=== PATIENT | male | born 1995 | race African-American/Black ===

== ENCOUNTER 2018-09-13 16:56 | Emergency (ER) | payer OTHER ==
[2018-09-13 17:12] VITALS: RESP 18
[2018-09-13] MEDS ORDERED: ACETAMINOPHEN TAB 500 MG TAB PO STA (18:04)
[2018-09-13] MEDS ORDERED: SODIUM CHLORIDE 0.9% 1,000 ML IV STA (18:04)
[2018-09-13] MEDS ORDERED: IBUPROFEN 600 MG TAB PO STA (18:04)
--- NOTE | 2018-09-13 18:07 | ED ---
General Adult HPI - General Chief complaint: Fever Stated complaint: FEVER, FATIQUE Time Seen by Provider: 09/13/18 17:45 Source: patient, RN notes reviewed Mode of arrival: ambulatory Limitations: no limitations - History of Present Illness Initial comments: Patient is a pleasant 23-year-old male presenting to the emergency Department with complaints of fever and sore throat. Patient has had symptoms for the past week however significant worse today. Patient has fever and sweats. Patient last took Motrin, 600 mg at 6:30 AM. Patient does have a headache however states this is similar to previous migraines. Patient feels slightly fatigued today. - Related Data Allergies Allergy/AdvReac Type Severity Reaction Status Date / Time No Known Allergies Allergy Verified 09/13/18 17:11 Review of Systems ROS Statement: Those systems with pertinent positive or pertinent negative responses have been documented in the HPI. ROS Other: All systems not noted in ROS Statement are negative. 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, heart murmer History of Any Multi-Drug Resistant Organisms: None Reported Additional Past Surgical History / Comment(s): past trach and feelding tube, biopsy to tounge Past Psychological History: No Psychological Hx Reported Smoking Status: Never smoker Past Alcohol Use History: None Reported Past Drug Use History: None Reported General Exam Limitations: no limitations General appearance: alert, in no apparent distress Head exam: Present: atraumatic Eye exam: Present: normal appearance, PERRL ENT exam: Present: TM's normal bilaterally, other (Mild pharyngeal erythema) Expanded Mouth exam: Present: tongue normal. Absent: drooling, trismus Neck exam: Present: normal inspection, full ROM, lymphadenopathy (With tenderness). Absent: meningismus Respiratory exam: Present: normal lung sounds bilaterally Cardiovascular Exam: Present: regular rate, normal rhythm GI/Abdominal exam: Present: soft. Absent: tenderness, organomegaly Extremities exam: Present: normal inspection. Absent: pedal edema, calf tenderness Neurological exam: Present: alert Psychiatric exam: Present: normal affect, normal mood Skin exam: Present: normal color Course Vital Signs 09/13/18 09/13/18 09/13/18 17:07 19:39 20:43 Temperature 102.6 F H 99.6 F Pulse Rate 95 84 Respiratory 18 18 Rate Blood Pressure 128/78 114/57 115/62 O2 Sat by Pulse 100 99 Oximetry - Reevaluation(s) Reevaluation #1: 09/13/18 19:54 Patient reevaluated and resting comfortably in bed. Patient is eating Doritos. Patient states symptoms have improved. Patient still complains of headache. Patient states his throat still feels somewhat abnormal. Patient is offered computed tomography scan to evaluate the area of the base of his tongue where he previously had problem and is receptive to this. Medical Decision Making - Medical Decision Making Patient reevaluated and resting comfortably in bed. Patient has no respiratory distress. Patient and family are updated on results and plan. Case was discussed earlier with Dr. Reeves from ENT who does recommend patient be transferred to [facility] or his specialist this and they have his records. Case was discussed with physician at [facility], Dr. Anderson, who will accept transfer. - Lab Data Result diagrams: 09/13/18 18:15 09/13/18 18:15 Lab Results 09/13/18 09/13/18 09/13/18 Range/Units 18:04 18:15 18:15 WBC 10.1 (3.8-10.6) k/uL RBC 4.34 (4.30-5.90) m/uL Hgb 12.4 L (13.0-17.5) gm/dL Hct 36.9 L (39.0-53.0) % MCV 85.1 (80.0-100.0) fL MCH 28.6 (25.0-35.0) pg MCHC 33.6 (31.0-37.0) g/dL RDW 13.0 (11.5-15.5) % Plt Count 224 (150-450) k/uL Neutrophils % 78 % Lymphocytes % 11 % Monocytes % 5 % Eosinophils % 3 % Basophils % 0 % Neutrophils # 7.9 H (1.3-7.7) k/uL Lymphocytes # 1.1 (1.0-4.8) k/uL Monocytes # 0.5 (0-1.0) k/uL Eosinophils # 0.3 (0-0.7) k/uL Basophils # 0.0 (0-0.2) k/uL Sodium 139 (137-145) mmol/L Potassium 4.7 (3.5-5.1) mmol/L Chloride 103 (98-107) mmol/L Carbon Dioxide 26 (22-30) mmol/L Anion Gap 10 mmol/L BUN 4 L (9-20) mg/dL Creatinine 0.87 (0.66-1.25) mg/dL Est GFR (CKD-EPI)AfAm >90 (>60 ml/min/1.73 sqM) Est GFR (CKD-EPI)NonAf >90 (>60 ml/min/1.73 sqM) Glucose 92 (74-99) mg/dL Calcium 9.4 (8.4-10.2) mg/dL Total Bilirubin 0.6 (0.2-1.3) mg/dL AST 26 (17-59) U/L ALT 18 L (21-72) U/L Alkaline Phosphatase 77 (38-126) U/L Total Protein 6.9 (6.3-8.2) g/dL Albumin 4.3 (3.5-5.0) g/dL Heterophile Antibody (Negative) Group A Strep Rapid Negative (Negative) 09/13/18 Range/Units 18:15 WBC (3.8-10.6) k/uL RBC (4.30-5.90) m/uL Hgb (13.0-17.5) gm/dL Hct (39.0-53.0) % MCV (80.0-100.0) fL MCH (25.0-35.0) pg MCHC (31.0-37.0) g/dL RDW (11.5-15.5) % Plt Count (150-450) k/uL Neutrophils % % Lymphocytes % % Monocytes % % Eosinophils % % Basophils % % Neutrophils # (1.3-7.7) k/uL Lymphocytes # (1.0-4.8) k/uL Monocytes # (0-1.0) k/uL Eosinophils # (0-0.7) k/uL Basophils # (0-0.2) k/uL Sodium (137-145) mmol/L Potassium (3.5-5.1) mmol/L Chloride (98-107) mmol/L Carbon Dioxide (22-30) mmol/L Anion Gap mmol/L BUN (9-20) mg/dL Creatinine (0.66-1.25) mg/dL Est GFR (CKD-EPI)AfAm (>60 ml/min/1.73 sqM) Est GFR (CKD-EPI)NonAf (>60 ml/min/1.73 sqM) Glucose (74-99) mg/dL Calcium (8.4-10.2) mg/dL Total Bilirubin (0.2-1.3) mg/dL AST (17-59) U/L ALT (21-72) U/L Alkaline Phosphatase (38-126) U/L Total Protein (6.3-8.2) g/dL Albumin (3.5-5.0) g/dL Heterophile Antibody Negative (Negative) Group A Strep Rapid (Negative) - Radiology Data Radiology results: report reviewed (Computed tomography scan of the soft tissue of the neck shows mild thickening base of the tongue adjacent to the epiglottis that should be correlated on physical exam. 2 cm tongue mass as possible.) Disposition Clinical Impression: Tongue mass, Pharyngitis Disposition: OTHER INSTITUTION NOT DEFINED Is patient prescribed a controlled substance at d/c from ED?: No Referrals: Samuel Barakat MD [Primary Care Provider] - 1-2 days - Out of Hospital Transfer - Req. Specs Out of Hospital Transfer - Requested Specifics: Other Emergency Center
[2018-09-13 18:28] LABS: Basophils % (A) 0 %; Eosinophils # (A) 0.3 k/uL (0-0.7); Eosinophils % (A) 3 %; HCT 36.9 % (39.0-53.0); HGB 12.4 gm/dL (13.0-17.5); Lymphocytes # (A) 1.1 k/uL (1.0-4.8); Lymphocytes % (A) 11 %; MCH 28.6 pg (25.0-35.0); MCHC 33.6 g/dL (31.0-37.0); MCV 85.1 fL (80.0-100.0); Mean Platelet Volume 7.9; Monocytes # (A) 0.5 k/uL (0-1.0); Monocytes % (A) 5 %; Neutrophils # (A) 7.9 k/uL (1.3-7.7); Neutrophils % (A) 78 %; Platelet Count 224 k/uL (150-450); RBC 4.34 m/uL (4.30-5.90); WBC 10.1 k/uL (3.8-10.6)
[2018-09-13 18:39] LABS: ALT 18 U/L (21-72); AST 26 U/L (17-59); African American GFR (CKD) >90 (>60 ml/min/1.73 sqM); Albumin 4.3 g/dL (3.5-5.0); Alkaline Phosphatase 77 U/L (38-126); Anion Gap 10 mmol/L; Blood Urea Nitrogen 4 mg/dL (9-20); Calcium 9.4 mg/dL (8.4-10.2); Carbon Dioxide 26 mmol/L (22-30); Chloride 103 mmol/L (98-107); Glucose 92 mg/dL (74-99); Potassium 4.7 mmol/L (3.5-5.1); Sodium 139 mmol/L (137-145); Total Bilirubin 0.6 mg/dL (0.2-1.3); Total Protein 6.9 g/dL (6.3-8.2)
[2018-09-13] MEDS ORDERED: SODIUM CHLORIDE 0.9% 500 ML 500 ML IV STA (18:46)
[2018-09-13] MEDS ORDERED: MORPHINE SULFATE 4 MG/ML SYRINGE IV STA (19:54)
--- NOTE | 2018-09-13 20:27 | CT ---
EXAMINATION TYPE: CT soft tissue neck w con DATE OF EXAM: 09/13/2018 8:08 PM COMPARISON: 04/27/2015 HISTORY: Sore throat CT DLP: 244 mGycm Automated exposure control for dose reduction was used. CONTRAST: CT scan of the neck is performed following with IV Contrast, patient injected with 100 mL of Isovue 3 00. Axial images are obtained, coronal and sagittal reformatted images are reviewed. FINDINGS: Superior mediastinum appears normal. There is normal branching pattern of the great vessels on the ao rtic arch. Thyroid gland is symmetric. There is normal contrast opacification of carotid arteries and jugular veins. There is normal opacification of the vertebral arteries. The epiglottis appears adrienne l. The tonsils and adenoids are within normal limits. The submandibular salivary glands are symmetric . Parotid glands are symmetric. There is some thickening of the base of the tongue adjacent to the ep iglottis. There is normal aeration of the paranasal sinuses. There is no evidence of orbital mass. I see no pat hologic enhancement. Sella turcica appears normal. Cervical spine is intact. The subglottic trachea a ppears normal. IMPRESSION: There is mild thickening of the base of the tongue adjacent to the epiglottis that shoul d be correlated with the physical exam. 2 cm tongue mass is possible.
[2018-09-13] MEDS ORDERED: DEXAMETHASONE SOD PHOSPHATE 10 MG/ML 1 ML VIAL IV STA (20:55)
[2018-09-13] MEDS ORDERED: CLINDAMYCIN 900 MG in DEXTROSE 5% IN WATER 50 ML IVPB STA ×2 (20:56)
[2018-09-13 21:42] VITALS: BP 116/72; PULSE 79; TEMP 98
== END 2018-09-13 22:16 | disposition other institution (70) ==
LOC: EC 16:56
DX: J02.9 Acute pharyngitis, unspecified (principal); K14.8 Other diseases of tongue; Z86.69 Personal history of other diseases of the nervous system and sense organs
CPT/HCPCS: 36415; 80053; 85025; 86308; 87081; 87430; 70491; 99284; 96365; 96375 ×2; 96361; J2270; J1100; Q9967

== ENCOUNTER 2019-08-31 14:00 | Emergency (ER) | payer OTHER ==
[2019-08-31 14:27] VITALS: BP 149/69; PULSE 80; RESP 16; TEMP 98.5
[2019-08-31] MEDS ORDERED: CIPROFLOXACIN HCL 500 MG TAB PO STA ×2 (14:32→14:46)
[2019-08-31] MEDS ORDERED: DIPH,PERTUS(ACELL)TETVAC-LF 0.5 ML VIAL IM ONE (14:32)
--- NOTE | 2019-08-31 14:54 | ED ---
General Adult HPI - General Chief complaint: Extremity Injury, Lower Stated complaint: Stepped on nail Time Seen by Provider: 08/31/19 14:20 Source: patient, RN notes reviewed, old records reviewed Mode of arrival: ambulatory Limitations: no limitations - History of Present Illness Initial comments: 24-year-old male patient is evaluation of left heel. Patient reports that he was working when he stepped on a nail which penetrated through the sole of his shoe. Patient reports that he has a small amount of bruising around the area is ambulatory without difficulty denie any pain. Denies any other complaints. - Related Data Previous Rx's Medication Instructions Recorded Ciprofloxacin HCl 500 mg PO Q8HR 7 Days #21 tab 08/31/19 Allergies Allergy/AdvReac Type Severity Reaction Status Date / Time No Known Allergies Allergy Verified 08/31/19 14:17 Review of Systems ROS Statement: Those systems with pertinent positive or pertinent negative responses have been documented in the HPI. ROS Other: All systems not noted in ROS Statement are negative. 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 HEENT: NC/AT, trachea midline. External ears appear normal, without discharge. Mucous membranes moist. EOM intact. There is no scleral icterus. No pallor noted. Cardiopulmonary: RRR, no murmurs, rubs or gallops, no JVD noted. Lungs CTAB in anterior and posterior montano. No peripheral edema. MSK: Small puncture wound noted to the heel of left foot. Very mild amount of localized bruising. No erythema or other skin changes. Nontender to palpation. Distal pulses are intact and equal. Limitations: no limitations Course Vital Signs 08/31/19 08/31/19 14:17 14:25 Temperature 98.1 F 98.5 F Pulse Rate 70 80 Respiratory 18 16 Rate Blood Pressure 113/70 149/69 O2 Sat by Pulse 100 98 Oximetry Medical Decision Making - Medical Decision Making 24-year-old male patient is evaluation of left heel. Patient reports that he was working when he stepped on a nail which penetrated through the sole of his shoe. Patient reports that he has a small amount of bruising around the area is ambulatory without difficulty denie any pain. Denies any other complaints. Pt VSS, afebrile. Physical exam displayed: Small puncture wound noted to the heel of left foot. Very mild amount of localized bruising. No erythema or other skin changes. Nontender to palpation. Distal pulses are intact and equal. Patient tetanus updated. Patient will be prescribed ciprofloxacin for one week for follow-up with primary care provider Carlito for signs of infection. Case discussed with Dr. Dior. Disposition Clinical Impression: Puncture wound of skin from metal nail Disposition: HOME SELF-CARE Condition: Stable Instructions (If sedation given, give patient instructions): Puncture Wound (ED) Additional Instructions: Take antibiotics as directed. Follow up with primary care provider tomorrow. Monitor closely for signs of infection. These included redness drainage and pain. Avoid strenuous activity. Prescriptions: Ciprofloxacin HCl 500 mg PO Q8HR 7 Days #21 tab Is patient prescribed a controlled substance at d/c from ED?: No Referrals: Samuel Barakat MD [Primary Care Provider] - 1-2 days
== END 2019-08-31 15:16 | disposition home or self-care (01) ==
LOC: EC 14:00
DX: S91.332A Puncture wound without foreign body, left foot, initial encounter (principal); Z23 Encounter for immunization; W45.0XXA Nail entering through skin, initial encounter
CPT/HCPCS: 90471; 90715; 99283

== ENCOUNTER 2020-05-04 21:22 | Emergency (ER) | payer OTHER ==
[2020-05-04 21:41] VITALS: BP 143/90; PULSE 92; TEMP 98.3
--- NOTE | 2020-05-04 23:06 | ED ---
Anxiety HPI - General Chief Complaint: Anxiety Stated Complaint: SOB,Chest Pain Time Seen by Provider: 05/04/20 21:43 Source: patient, RN notes reviewed Mode of arrival: ambulatory Limitations: no limitations - History of Present Illness Initial Comments: 24-year-old male presents emergency Department chief complaint of severe anxiety, depression, suicidal ideation. Patient states that this is been getting worse recently he states it's combination of stress from work home life relationships. Patient states he took all day just to get to the hospital because he felt that he is not man enough to be acting like this. 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 Patient had a trach in the past multiple surgeries. Patient does admit to marijuana use. Patient states he did drink earlier today. - Related Data Home Medications: Home Medications Medication Instructions Recorded Confirmed Albuterol Inhaler [Ventolin Hfa 2 puff INHALATION RT-QID PRN 05/04/20 05/04/20 Inhaler] Diclofenac Sodium [Voltaren] 75 mg PO BID 05/04/20 05/04/20 HYDROcodone/APAP 5-325MG [[place] 1 tab PO QID 05/04/20 05/04/20 5-325] Allergies/Adverse Reactions: Allergies Allergy/AdvReac Type Severity Reaction Status Date / Time No Known Allergies Allergy Verified 05/04/20 22:52 Review of Systems ROS Statement: Those systems with pertinent positive or pertinent negative responses have been documented in the HPI. ROS Other: All systems not noted in ROS Statement are negative. 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 Absent: scleral icterus, conjunctival injection, periorbital swelling ENT exam: Present: mucous membranes moist, TM's normal bilaterally. Absent: normal exam, normal oropharynx Neck exam: Present: full ROM. Absent: normal inspection (Old trach noted), tenderness, meningismus, lymphadenopathy Respiratory exam: Present: normal lung sounds bilaterally. Absent: respiratory distress, wheezes, rales, rhonchi, stridor Cardiovascular Exam: Present: regular rate, normal rhythm, normal heart sounds. Absent: systolic murmur, diastolic murmur, rubs, gallop, clicks Neurological exam: Present: alert, oriented X3 Psychiatric exam: Present: depressed (Patient is tearful) Skin exam: Present: warm, dry, intact, normal color. Absent: rash Course Vital Signs 05/04/20 05/04/20 21:36 23:00 Temperature 98.3 F Pulse Rate 92 Respiratory 20 17 Rate Blood Pressure 143/90 O2 Sat by Pulse 98 Oximetry Medical Decision Making - Medical Decision Making 24-year-old male presented for psychiatric evaluation patient has CT plan will follow-up outpatient for treatment this was recommended by EPS and psychiatrist. Disposition Clinical Impression: Acute anxiety, Depression Disposition: HOME SELF-CARE Condition: Stable Instructions (If sedation given, give patient instructions): Generalized Anxiety Disorder (ED) Additional Instructions: Please return to the Emergency Department if symptoms worsen or any other concerns. Is patient prescribed a controlled substance at d/c from ED?: No Referrals: Samuel Barakat MD [Primary Care Provider] - 1-2 days Time of Disposition: 01:54
[2020-05-04 23:17] VITALS: RESP 17
== END 2020-05-05 02:44 | disposition home or self-care (01) ==
LOC: EC 21:22
DX: F32.9 Major depressive disorder, single episode, unspecified (principal); F41.9 Anxiety disorder, unspecified; F17.200 Nicotine dependence, unspecified, uncomplicated
CPT/HCPCS: 93005; 99284

== ENCOUNTER 2020-07-16 23:06 | Emergency (ER) | payer OTHER ==
[2020-07-16 23:38] VITALS: RESP 14
--- NOTE | 2020-07-17 00:18 | ED ---
Chest Pain HPI - General Chief Complaint: Chest Pain Stated Complaint: chest pain Time Seen by Provider: 07/16/20 23:30 Source: patient Mode of arrival: ambulatory Limitations: no limitations - History of Present Illness Initial Comments: This patient is 24-year-old man who presents to be evaluated for left upper chest pain. Patient states it has been going on since about 10 AM. He noticed it when he was making breakfast. The patient describes as aching. No worsening or relieving factors. He has also been having intermittently over the course of the last month though it has not lasted this long with the previous episodes. MD Complaint: chest pain Onset/Timin -: hour(s) Onset: during rest Pain Location: left chest Pain Radiation: none Severity: moderate Quality: aching, sharp Consistency: constant Improves With: nothing Worsens With: nothing Treatments Prior to Arrival: none - Related Data Home Medications Medication Instructions Recorded Confirmed Albuterol Inhaler [Ventolin Hfa 2 puff INHALATION RT-QID PRN 05/04/20 05/04/20 Inhaler] Diclofenac Sodium [Voltaren] 75 mg PO BID 05/04/20 05/04/20 HYDROcodone/APAP 5-325MG [[place] 1 tab PO QID 05/04/20 05/04/20 5-325] Allergies Allergy/AdvReac Type Severity Reaction Status Date / Time No Known Allergies Allergy Verified 07/16/20 23:18 Review of Systems ROS Statement: Those systems with pertinent positive or pertinent negative responses have been documented in the HPI. ROS Other: All systems not noted in ROS Statement are negative. Constitutional: Denies: fever, chills Respiratory: Denies: cough, dyspnea Cardiovascular: Reports: as per HPI, chest pain. Denies: palpitations, orthopnea, edema, syncope Gastrointestinal: Denies: abdominal pain, nausea, vomiting, diarrhea Genitourinary: Denies: dysuria, hematuria Musculoskeletal: Denies: back pain Skin: Denies: rash Neurological: Denies: headache, weakness, numbness EKG Findings - EKG Comments: EKG Findings:: Probable early repolarization - EKG Results: EKG: interpreted by TREMAINE, sinus rhythm (With sinus arrhythmia. 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 Absent: scleral icterus, conjunctival injection ENT exam: Present: normal oropharynx Neck exam: Present: normal inspection, full ROM Respiratory exam: Present: normal lung sounds bilaterally, chest wall tenderness. Absent: respiratory distress, wheezes, rales, rhonchi, stridor, accessory muscle use Cardiovascular Exam: Present: regular rate, normal rhythm, normal heart sounds. Absent: systolic murmur, diastolic murmur, rubs, gallop GI/Abdominal exam: Present: soft. Absent: distended, tenderness, guarding, rebound, rigid, mass, pulsatile mass, hernia Extremities exam: Present: normal inspection, normal capillary refill. Absent: pedal edema, calf tenderness Back exam: Present: normal inspection. Absent: CVA tenderness (R), CVA tenderness (L) Neurological exam: Present: alert Skin exam: Present: warm, dry, intact, normal color. Absent: rash Course Vital Signs 07/16/20 07/16/20 07/17/20 23:16 23:37 02:21 Temperature 98.1 F 97.8 F Pulse Rate 80 68 67 Respiratory 18 14 14 Rate Blood Pressure 130/82 128/73 108/64 O2 Sat by Pulse 100 98 100 Oximetry Chest Pain [facility] Patient is 24-year-old man with chest pain. Given the duration of the symptoms, patient stable for discharge after one set of cardiac enzymes. Will have close follow-up. Discussed return parameters. Disposition Clinical Impression: Chest pain Disposition: HOME SELF-CARE Condition: Good Instructions (If sedation given, give patient instructions): Chest Pain (ED) Is patient prescribed a controlled substance at d/c from ED?: No Referrals: Samuel Barakat MD [Primary Care Provider] - 1-2 days
--- NOTE | 2020-07-17 00:26 | XR ---
EXAMINATION TYPE: XR chest 2V DATE OF EXAM: 07/17/2020 COMPARISON: 11/13/2005 HISTORY: Chest pain TECHNIQUE: FINDINGS: Heart and mediastinum are normal. Lungs are clear. Diaphragm is normal. Bony thorax appears normal. IMPRESSION: Normal chest.
[2020-07-17 00:43] LABS: Basophils % (A) 1 %; Eosinophils # (A) 0.3 k/uL (0-0.7); Eosinophils % (A) 5 %; HCT 38.6 % (39.0-53.0); HGB 13.2 gm/dL (13.0-17.5); Lymphocytes # (A) 2.3 k/uL (1.0-4.8); Lymphocytes % (A) 40 %; MCH 30.6 pg (25.0-35.0); MCHC 34.2 g/dL (31.0-37.0); MCV 89.4 fL (80.0-100.0); Mean Platelet Volume 7.7; Monocytes # (A) 0.2 k/uL (0-1.0); Monocytes % (A) 4 %; Neutrophils # (A) 2.8 k/uL (1.3-7.7); Neutrophils % (A) 49 %; Platelet Count 221 k/uL (150-450); RBC 4.32 m/uL (4.30-5.90); RDW 11.6 % (11.5-15.5); WBC 5.7 k/uL (3.8-10.6)
[2020-07-17 01:01] LABS: D-Dimer <0.17 mg/L FEU (<0.60); INR 1.1 (<1.2); Partial Thromboplastin Time 27.6 sec (22.0-30.0); Prothrombin Time 11.4 sec (9.0-12.0)
[2020-07-17 01:09] LABS: ALT 19 U/L (4-49); AST 31 U/L (17-59); African American GFR (CKD) >90 (>60 ml/min/1.73 sqM); Albumin 4.2 g/dL (3.5-5.0); Alkaline Phosphatase 66 U/L (38-126); Amylase 112 U/L (30-110); Anion Gap 6 mmol/L; Blood Urea Nitrogen 10 mg/dL (9-20); Calcium 9.6 mg/dL (8.4-10.2); Carbon Dioxide 29 mmol/L (22-30); Chloride 104 mmol/L (98-107); Glucose 96 mg/dL (74-99); Lipase 106 U/L (23-300); Magnesium 1.8 mg/dL (1.6-2.3); Non-African American GFR(CKD) >90 (>60 ml/min/1.73 sqM); Potassium 4.1 mmol/L (3.5-5.1); Sodium 139 mmol/L (137-145); Total Bilirubin 0.4 mg/dL (0.2-1.3); Total Protein 6.6 g/dL (6.3-8.2)
[2020-07-17 02:23] VITALS: BP 108/64; PULSE 67; TEMP 97.8
== END 2020-07-17 02:29 | disposition home or self-care (01) ==
LOC: EC 23:06
DX: R07.89 Other chest pain (principal); F17.200 Nicotine dependence, unspecified, uncomplicated; F12.90 Cannabis use, unspecified, uncomplicated; Z79.1 Long term (current) use of non-steroidal anti-inflammatories (NSAID)
CPT/HCPCS: 36415; 71046; 80053; 82150; 83690; 83735; 84484; 85025; 85379; 85610; 85730; 93005; 99285

== ENCOUNTER 2022-09-29 21:49 | Emergency (ER) | payer OTHER ==
[2022-09-29 21:55] VITALS: TEMP 99.3
[2022-09-29 22:36] LABS: Basophils % (A) 0 %; Eosinophils # (A) 0.1 k/uL (0-0.7); Eosinophils % (A) 3 %; HCT 36.8 % (39.0-53.0); HGB 12.4 gm/dL (13.0-17.5); Lymphocytes # (A) 0.5 k/uL (1.0-4.8); Lymphocytes % (A) 12 %; MCH 29.5 pg (25.0-35.0); MCHC 33.7 g/dL (31.0-37.0); MCV 87.4 fL (80.0-100.0); Mean Platelet Volume 8.1; Monocytes # (A) 0.2 k/uL (0-1.0); Monocytes % (A) 6 %; Neutrophils # (A) 3.1 k/uL (1.3-7.7); Neutrophils % (A) 78 %; Platelet Count 153 k/uL (150-450); RBC 4.21 m/uL (4.30-5.90); RDW 11.9 % (11.5-15.5)
[2022-09-29 22:39] LABS: African American GFR (CKD) >90 (>60 ml/min/1.73 sqM); Anion Gap 6 mmol/L; Blood Urea Nitrogen 6 mg/dL (9-20); Calcium 8.8 mg/dL (8.4-10.2); Carbon Dioxide 26 mmol/L (22-30); Chloride 103 mmol/L (98-107); Glucose 113 mg/dL (74-99); Non-African American GFR(CKD) >90 (>60 ml/min/1.73 sqM); Potassium 3.8 mmol/L (3.5-5.1); Sodium 135 mmol/L (137-145)
[2022-09-29] MEDS ORDERED: SODIUM CHLORIDE 0.9% 2,000 ML IV ONE (23:46)
[2022-09-29] MEDS ORDERED: diphenhydrAMINE 50 MG/ML 1 ML VIAL IVP STA (23:46)
[2022-09-29] MEDS ORDERED: METOCLOPRAMIDE 5 MG/ML 2 ML VIAL IVP STA (23:46)
[2022-09-29] MEDS ORDERED: KETOROLAC 15 MG/ML 1 ML VIAL IVP STA (23:46)
--- NOTE | 2022-09-30 01:47 | XR ---
EXAM: XR Chest, 2 Views CLINICAL HISTORY: : Cough/pain TECHNIQUE: Frontal and lateral views of the chest. COMPARISON: 07/17/2020 FINDINGS: Lungs: No consolidation. Hypoventilation with mild atelectasis. No CHF. Pleural space: No pleural effusion. No pneumothorax. Heart: No cardiomegaly. Mediastinum: Unremarkable. Bones/joints: Unremarkable. IMPRESSION: Hypoventilation with mild atelectasis. No definite focal infiltrate.
[2022-09-30 02:02] LABS: Appearance,Urine Clear (Clear); Color,Urine Yellow
[2022-09-30 02:03] LABS: Bilirubin,Urine Negative (Negative); Blood,Urine Small (Negative); Glucose,Urine (UA) Negative (Negative); Ketones,Urine Negative (Negative); Leukocyte Esterase,Urine Negative (Negative); Nitrite,Urine Negative (Negative); PH, Urine 6.5 (5.0-8.0); Protein,Urine 1+ (Negative); Specific Gravity,Urine 1.029 (1.001-1.035)
[2022-09-30] MEDS ORDERED: MORPHINE SULFATE 4 MG/ML SYRINGE IVP STA (02:08)
[2022-09-30 02:10] LABS: Calcium Oxalate Crystals,Urine Moderate /hpf; RBC,Urine 2 /hpf (0-5); WBC,Urine 0 /hpf (0-5)
--- NOTE | 2022-09-30 02:19 | ED ---
General Adult HPI - General Chief complaint: Fever Stated complaint: Body aches, headache Time Seen by Provider: 09/29/22 22:00 Source: patient Mode of arrival: ambulatory Limitations: no limitations - History of Present Illness Initial comments: 27-year-old male with past medical history of tongue AVM, status post trach and PEG who presents to the emergency room with body aches, headache and fever. States it's been going on since Thursday. He has been taking Motrin without any improvement in his symptoms. Denies any sick contacts. Last dose of Motrin was at 2 PM. No cold exposure. Does admit to a nonproductive cough. No abdominal pain. Has had some mild diarrhea. Admits global headache. No neck stiffness. No chest pain. Denies rashes. Denies ear pain or sore throat. No other alleviating, precipitating modifying factors - Related Data Home Medications Medication Instructions Recorded Confirmed Albuterol Inhaler [Ventolin Hfa 2 puff INHALATION RT-QID PRN 05/04/20 05/04/20 Inhaler] Diclofenac Sodium [Voltaren] 75 mg PO BID 05/04/20 05/04/20 HYDROcodone/APAP 5-325MG [[place] 1 tab PO QID 05/04/20 05/04/20 5-325] Previous Rx's Medication Instructions Recorded Acetaminophen-Codeine 300-30mg 1 tab PO Q6H PRN 3 Days #12 tablet 09/30/22 [Tylenol w/codeine #3] Ondansetron Odt [Zofran Odt] 4 mg PO Q8HR PRN #10 tab 09/30/22 Allergies Allergy/AdvReac Type Severity Reaction Status Date / Time No Known Allergies Allergy Verified 07/16/20 23:18 Review of Systems ROS Statement: Those systems with pertinent positive or pertinent negative responses have been documented in the HPI. ROS Other: All systems not noted in ROS Statement are negative. 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 Absent: scleral icterus, conjunctival injection, periorbital swelling ENT exam: Present: normal exam, mucous membranes moist Neck exam: Present: normal inspection. Absent: tenderness, meningismus, lympha denopathy Respiratory exam: Present: normal lung sounds bilaterally. Absent: respiratory distress, wheezes, rales, rhonchi, stridor Cardiovascular Exam: Present: regular rate, normal rhythm, normal heart sounds. Absent: systolic murmur, diastolic murmur, rubs, gallop, clicks GI/Abdominal exam: Present: soft, normal bowel sounds. Absent: distended, tenderness, guarding, rebound, rigid Extremities exam: Present: normal inspection, full ROM, normal capillary refill. Absent: tenderness, pedal edema, joint swelling, calf tenderness Back exam: Present: normal inspection Neurological exam: Present: alert, oriented X3, CN II-XII intact Psychiatric exam: Present: normal affect, normal mood Skin exam: Present: warm, dry, intact, normal color. Absent: rash Course Vital Signs 09/29/22 09/30/22 21:50 03:30 Temperature 99.3 F Pulse Rate 88 59 L Respiratory 18 16 Rate Blood Pressure 154/81 116/69 O2 Sat by Pulse 97 100 Oximetry Medical Decision Making - Medical Decision Making Was pt. sent in by a medical professional or institution (, PA, ASSISTANT CLINICAL NURSE MANAGER, urgent care, hospital, or shelter...) When possible be specific @ -No Did you speak to anyone other than the patient for history (EMS, parent, family, police, friend...)? What history was obtained from this source @ -No Did you review nursing and triage notes (agree or disagree)? Why? @ -I reviewed and agree with nursing and triage notes Were old charts reviewed (outside hosp., previous admission, EMS record, old EKG, old radiological studies, urgent care reports/EKG's, shelter records)? Report findings @ -No old charts were reviewed Differential Diagnosis (chest pain, altered mental status, abdominal pain women, abdominal pain men, vaginal bleeding, weakness, fever, dyspnea, syncope, headache, dizziness, GI bleed, back pain, seizure, CVA, palpatations, mental health, musculoskeletal)? @ -Differential Fever: Pneumonia, viral URI, endocarditis, myocarditis, pericarditis, otitis, sinusitis, peritonsillar Abscess, retropharyngeal Abscess, epiglottitis, peritonitis, appendicitis, Kanika cystitis, diverticulitis, hepatitis, colitis, UTI, PID, TOA, pyelonephritis, prostatitis, epididymitis, meningitis, enceph alitis, pulmonary embolism, CVA, thyroid storm, pancreatitis, adrenal crisis, cavernous sinus thrombosis, this is not meant to be an all-inclusive list. EKG interpreted by me (3pts min.). @ -Not done X-rays interpreted by me (1pt min.). @ -Yes and demonstrates no acute intrathoracic process CT interpreted by me (1pt min.). @ -None done U/S interpreted by me (1pt. min.). @ -None done What testing was considered but not performed or refused? (CT, X-rays, U/S, labs)? Why? @ -Lumbar puncture however patient has no meningeal signs. He has no elevated white count or fever What meds were considered but not given or refused? Why? @ -None Did you discuss the management of the patient with other professionals (professionals i.e. , PA, ASSISTANT CLINICAL NURSE MANAGER, lab, RT, psych nurse, rn social services, pump servicer, teacher, juvenile probation officer, spring encaser)? Give summary @ -No Was smoking cessation discussed for >3mins.? @ -No Was critical care preformed (if so, how long)? @ -No Were there social determinants of health that impacted care today? How? (Homelessness, low income, unemployed, alcoholism, drug addiction, transportation, low edu. Level, literacy, decrease access to med. care, long term, rehab)? @ -No Was there de-escalation of care discussed even if they declined (Discuss DNR or withdrawal of care, Hospice)? DNR status @ -No What co-morbidities impacted this encounter? (DM, HTN, Smoking, COPD, CAD, Cancer, CVA, ARF, Chemo, Hep., AIDS, mental health diagnosis, sleep apnea, morbid obesity)? @ -None Was patient admitted / discharged? Hospital course, mention meds given and route, prescriptions, significant lab abnormalities, going to OR and other pertinent info. @ -Upon arrival patient was placed into room 29. A thorough history and physical exam is performed. IV access was established. He was given Reglan and Benadryl for his headache. Laboratory studies were conducted. Patient is reevaluated multiple times. He does not have any improvement in his headache. He was given 1 dose of morphine and is essentially pain-free. Discuss results with the patient. Discussed the differential and treatment plan. Patient will be given a prescription for Tylenol 3. Needs to follow up with primary care doctor for further evaluation. Drink plenty of fluids and rest and return for any new or worsening symptoms. Patient was agreeable to plan and is discharged in stable condition Undiagnosed new problem with uncertain prognosis? @ -Yes Drug Therapy requiring intensive monitoring for toxicity (Heparin, Nitro, Insulin, Cardizem)? @ -No Were any procedures done? @ -No Diagnosis/symptom? @ -Acute pyrexia by history, acute nausea, acute diarrhea, acute myalgias Acute, or Chronic, or Acute on Chronic? @ -Acute Uncomplicated (without systemic symptoms) or Complicated (systemic symptoms)? @ -Complicated Side effects of treatment? @ -No Exacerbation, Progression, or Severe Exacerbation? @ -No Poses a threat to life or bodily function? How? (Chest pain, [place], SC, pneumonia, PE, COPD, DKA, ARF, appy, cholecystitis, CVA, Diverticulitis, Homicidal, Suicidal, threat to staff... and all critical care pts) @ -No - Lab Data Result diagrams: 09/29/22 22:00 09/29/22 22:00 Lab Results 09/29/22 09/29/22 09/29/22 Range/Units 21:56 22:00 22:00 WBC 4.0 (3.8-10.6) k/uL RBC 4.21 L (4.30-5.90) m/uL Hgb 12.4 L (13.0-17.5) gm/dL Hct 36.8 L (39.0-53.0) % MCV 87.4 (80.0-100.0) fL MCH 29.5 (25.0-35.0) pg MCHC 33.7 (31.0-37.0) g/dL RDW 11.9 (11.5-15.5) % Plt Count 153 (150-450) k/uL MPV 8.1 Neutrophils % 78 % Lymphocytes % 12 % Monocytes % 6 % Eosinophils % 3 % Basophils % 0 % Neutrophils # 3.1 (1.3-7.7) k/uL Lymphocytes # 0.5 L (1.0-4.8) k/uL Monocytes # 0.2 (0-1.0) k/uL Eosinophils # 0.1 (0-0.7) k/uL Basophils # 0.0 (0-0.2) k/uL Sodium 135 L (137-145) mmol/L Potassium 3.8 (3.5-5.1) mmol/L Chloride 103 (98-107) mmol/L Carbon Dioxide 26 (22-30) mmol/L Anion Gap 6 mmol/L BUN 6 L (9-20) mg/dL Creatinine 0.94 (0.66-1.25) mg/dL Est GFR (CKD-EPI)AfAm >90 (>60 ml/min/1.73 sqM) Est GFR (CKD-EPI)NonAf >90 (>60 ml/min/1.73 sqM) Glucose 113 H (74-99) mg/dL Calcium 8.8 (8.4-10.2) mg/dL Urine Color Urine Appearance (Clear) Urine pH (5.0-8.0) Ur Specific [place] (1.001-1.035) Urine Protein (Negative) Urine Glucose (UA) (Negative) Urine Ketones (Negative) Urine Blood (Negative) Urine Nitrite (Negative) Urine Bilirubin (Negative) Urine Urobilinogen (<2.0) mg/dL Ur Leukocyte Esterase (Negative) Urine RBC (0-5) /hpf Urine WBC (0-5) /hpf Calcium Oxalate Crystal (None) /hpf Urine Bacteria (None) /hpf Heterophile Antibody (Negative) Influenza Type A (PCR) Not Detected (Not Detectd) Influenza Type B (PCR) Not Detected (Not Detectd) RSV (PCR) Not Detected (Not Detectd) SARS-CoV-2 (PCR) Not Detected (Not Detectd) 09/30/22 09/30/22 Range/Units 00:05 00:35 WBC (3.8-10.6) k/uL RBC (4.30-5.90) m/uL Hgb (13.0-17.5) gm/dL Hct (39.0-53.0) % MCV (80.0-100.0) fL MCH (25.0-35.0) pg MCHC (31.0-37.0) g/dL RDW (11.5-15.5) % Plt Count (150-450) k/uL MPV Neutrophils % % Lymphocytes % % Monocytes % % Eosinophils % % Basophils % % Neutrophils # (1.3-7.7) k/uL Lymphocytes # (1.0-4.8) k/uL Monocytes # (0-1.0) k/uL Eosinophils # (0-0.7) k/uL Basophils # (0-0.2) k/uL Sodium (137-145) mmol/L Potassium (3.5-5.1) mmol/L Chloride (98-107) mmol/L Carbon Dioxide (22-30) mmol/L Anion Gap mmol/L BUN (9-20) mg/dL Creatinine (0.66-1.25) mg/dL Est GFR (CKD-EPI)AfAm (>60 ml/min/1.73 sqM) Est GFR (CKD-EPI)NonAf (>60 ml/min/1.73 sqM) Glucose (74-99) mg/dL Calcium (8.4-10.2) mg/dL Urine Color Yellow Urine Appearance Clear (Clear) Urine pH 6.5 (5.0-8.0) Ur Specific [place] 1.029 (1.001-1.035) Urine Protein 1+ (Negative) Urine Glucose (UA) Negative (Negative) Urine Ketones Negative (Negative) Urine Blood Small (Negative) Urine Nitrite Negative (Negative) Urine Bilirubin Negative (Negative) Urine Urobilinogen 3.0 (<2.0) mg/dL Ur Leukocyte Esterase Negative (Negative) Urine RBC 2 (0-5) /hpf Urine WBC 0 (0-5) /hpf Calcium Oxalate Crystal Moderate H (None) /hpf Urine Bacteria NONE (None) /hpf Heterophile Antibody Negative (Negative) Influenza Type A (PCR) (Not Detectd) Influenza Type B (PCR) (Not Detectd) RSV (PCR) (Not Detectd) SARS-CoV-2 (PCR) (Not Detectd) Disposition Clinical Impression: Pyrexia of unknown origin, Myalgia Disposition: HOME SELF-CARE Condition: Stable Instructions (If sedation given, give patient instructions): Fever in Adults (ED) Additional Instructions: Please alternate taking the Tylenol threes with Motrin every 4 hours. Take the nausea medications as needed. Follow up with your doctor and return for any new or worsening symptoms Prescriptions: Acetaminophen-Codeine 300-30mg [Tylenol w/codeine #3] 1 tab PO Q6H PRN 3 Days #12 tablet PRN Reason: Pain Ondansetron Odt [Zofran Odt] 4 mg PO Q8HR PRN #10 tab PRN Reason: Nausea Is patient prescribed a controlled substance at d/c from ED?: Yes When asked, does pt state using other controlled substances?: No If prescribed controlled substance>3 days was MAPS reviewed?: Prescribed <3 Days Referrals: Samuel Barakat MD [Primary Care Provider] - 1-2 days Time of Disposition: 03:11
[2022-09-30] MEDS ORDERED: ACET/COD 300 MG/30 MG STARTER PACK 6 TAB BTL PO STA (03:10)
[2022-09-30] MEDS ORDERED: ONDANSETRON 4 MG ODT STARTER PACK 2 TAB BTL PO STA (03:10)
[2022-09-30 03:32] VITALS: BP 116/69; PULSE 59; RESP 16
== END 2022-09-30 03:31 | disposition home or self-care (01) ==
LOC: EC 21:49
DX: R50.9 Fever, unspecified (principal); M79.10 Myalgia, unspecified site; F17.200 Nicotine dependence, unspecified, uncomplicated; F12.90 Cannabis use, unspecified, uncomplicated; Z20.822 Contact with and (suspected) exposure to COVID-19
CPT/HCPCS: 36415; 80048; 85025; 86308; 81001; 87636; 71046; 99284; 96374; 96375 ×3; 96361 ×3; J2270; J1200; J2765; J1885; S0119

== ENCOUNTER 2022-10-02 21:28 | Emergency (ER) | payer OTHER ==
[2022-10-02 21:34] VITALS: TEMP 99
[2022-10-02] MEDS ORDERED: SODIUM CHLORIDE 0.9% 500 ML 500 ML IV STA (21:44)
[2022-10-02 22:03] LABS: HCT 36.3 % (39.0-53.0); HGB 12.7 gm/dL (13.0-17.5); MCHC 34.9 g/dL (31.0-37.0); MCV 85.8 fL (80.0-100.0); Platelet Count 122 k/uL (150-450); RBC 4.24 m/uL (4.30-5.90); WBC 3.4 k/uL (3.8-10.6)
[2022-10-02] MEDS ORDERED: diphenhydrAMINE 50 MG/ML 1 ML VIAL IVP STA (22:09)
[2022-10-02] MEDS ORDERED: methocarbamoL 750 MG TAB PO ONE (22:15)
[2022-10-02 22:20] LABS: ALT 27 U/L (4-49); AST 35 U/L (17-59); African American GFR (CKD) >90 (>60 ml/min/1.73 sqM); Albumin 3.6 g/dL (3.5-5.0); Alkaline Phosphatase 74 U/L (38-126); Anion Gap 7 mmol/L; Blood Urea Nitrogen 7 mg/dL (9-20); C Reactive Protein 3.9 mg/dL (<1.0); Calcium 8.6 mg/dL (8.4-10.2); Carbon Dioxide 26 mmol/L (22-30); Chloride 103 mmol/L (98-107); Glucose 117 mg/dL (74-99); Non-African American GFR(CKD) >90 (>60 ml/min/1.73 sqM); Potassium 3.6 mmol/L (3.5-5.1); Sodium 136 mmol/L (137-145); Total Bilirubin 0.6 mg/dL (0.2-1.3); Total Protein 6.3 g/dL (6.3-8.2)
--- NOTE | 2022-10-02 22:45 | CT ---
EXAM: CT Head Without Intravenous Contrast CLINICAL HISTORY: ITS.REASON CT Reason: Headache TECHNIQUE: Axial computed tomography images of the head/brain without intravenous contrast. CTDI is 49.1 mGy and DLP is 1189.4 mGy-cm. This CT exam was performed using one or more of the following dose reduction techniques: automated exposure control, adjustment of the mA and/or kV according to patient size, and/or use of iterative reconstruction technique. COMPARISON: No relevant prior studies available. FINDINGS: Brain: Unremarkable. No hemorrhage. No significant white matter disease. No edema. Brown-white matter differentiation maintained. Ventricles: Unremarkable. No hydrocephalus. Bones/joints: Unremarkable. No acute fracture. Soft tissues: Unremarkable. Sinuses: Unremarkable as visualized. No acute sinusitis. Mastoid air cells: Unremarkable as visualized. No mastoid effusion. IMPRESSION: No acute intracranial process.
--- NOTE | 2022-10-02 22:49 | CT ---
EXAM: CT Abdomen and Pelvis With Intravenous Contrast CLINICAL HISTORY: ITS.REASON CT Reason: rlq pain TECHNIQUE: Axial computed tomography images of the abdomen and pelvis with intravenous contrast. CTDI is 14.5 mGy and DLP is 661.6 mGy-cm. This CT exam was performed using one or more of the following dose reduction techniques: automated exposure control, adjustment of the mA and/or kV according to patient size, and/or use of iterative reconstruction technique. COMPARISON: No relevant prior studies available. FINDINGS: There are trace pleural effusions at the lung bases. Liver is enlarged. Gallbladder is contracted. There is no biliary dilatation. Spleen, pancreas, adrenal glands, and kidneys are within normal limits. Aorta is normal in caliber. There is no adenopathy. There is mild pelvic ascites. There is no free air or abscess. Appendix is normal. There is no bowel obstruction or inflammation. There is urinary bladder wall thickening in the setting of incomplete distention. Prostate is unremarkable. Regional skeleton appears intact. There is trace anasarca. IMPRESSION: 1. Normal appendix. 2. Mild pelvic ascites, cause unclear. This could reflect hypervolemia or occult infectious/inflammatory process. 3. Trace pleural effusions. 4. Bladder wall thickening, likely due to incomplete distention. Correlate with urinalysis to exclude cystitis.
[2022-10-02 22:52] LABS: Band Neutrophils % 6 %; Lymphocytes # (M) 1.53 k/uL (1.0-4.8); Monocytes # (M) 0.34 k/uL (0-1.0); Neutrophils % (M) 36 %; Nucleated Red Blood Cells 0 /100 WBC (0-0); Total Cells Counted 100
[2022-10-02] MEDS ORDERED: DEXAMETHASONE SOD PHOSPHATE 10 MG/ML 1 ML VIAL IVP STA (23:39)
--- NOTE | 2022-10-02 23:40 | ED ---
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 He was seen in the emergency department on September 29 for a headache and body aches. States that he was having fevers at home. Evaluation was performed which demonstrated a suspected viral syndrome. Patient reports that since he has been home his headache has almost completely alleviated. He no longer has any fevers. He did develop some bilateral neck aching and therefore was concerned that he needed to come back to the hospital as he was told that neck stiffness was one of his symptoms to look out for. He also has developed a rash to his torso which is pruritic. He has not taken any medications at home for his symptoms. Denies pain with range of motion of his neck. Does have some tenderness to palpation of the paraspinal muscles. No visual changes. No speech difficulties. States that his symptoms overall have improved. He denies any more diarrhea. Has developed some right lower quadrant abdominal pain. No vomiting. No changes in his bladder habits. No other alleviating, precipitating or modifying factors - Related Data Home Medications Medication Instructions Recorded Confirmed Albuterol Inhaler [Ventolin Hfa 2 puff INHALATION RT-QID PRN 05/04/20 05/04/20 Inhaler] Diclofenac Sodium [Voltaren] 75 mg PO BID 05/04/20 05/04/20 HYDROcodone/APAP 5-325MG [[place] 1 tab PO QID 05/04/20 05/04/20 5-325] Previous Rx's Medication Instructions Recorded Acetaminophen-Codeine 300-30mg 1 tab PO Q6H PRN 3 Days #12 tablet 09/30/22 [Tylenol w/codeine #3] Ondansetron Odt [Zofran Odt] 4 mg PO Q8HR PRN #10 tab 09/30/22 Allergies Allergy/AdvReac Type Severity Reaction Status Date / Time No Known Allergies Allergy Verified 10/02/22 21:34 Review of Systems ROS Statement: Those systems with pertinent positive or pertinent negative responses have been documented in the HPI. ROS Other: All systems not noted in ROS Statement are negative. 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 Absent: scleral icterus, conjunctival injection, periorbital swelling ENT exam: Present: normal exam, mucous membranes moist Neck exam: Present: tenderness (To palpation of the paraspinal muscles. No midline tenderness. Negative Brudzinski's and negative Kernig's). Absent: meningismus, lymphadenopathy Respiratory exam: Present: normal lung sounds bilaterally. Absent: respiratory distress, wheezes, rales, rhonchi, stridor Cardiovascular Exam: Present: regular rate, normal rhythm, normal heart sounds. Absent: systolic murmur, diastolic murmur, rubs, gallop, clicks GI/Abdominal exam: Present: tenderness (Right lower quadrant), normal bowel sounds. Absent: distended, guarding, rebound, rigid Extremities exam: Present: normal inspection, full ROM, normal capillary refill. Absent: tenderness, pedal edema, joint swelling, calf tenderness Back exam: Present: normal inspection Neurological exam: Present: alert, oriented X3, CN II-XII intact Psychiatric exam: Present: normal affect, normal mood Skin exam: Present: warm, dry, intact, normal color, rash (Macular rash involving forearms, torso. No vesicles identified) Course Vital Signs 10/02/22 10/02/22 21:29 23:54 Temperature 99.0 F Pulse Rate 88 78 Respiratory 18 15 Rate Blood Pressure 148/84 132/84 O2 Sat by Pulse 97 100 Oximetry Medical Decision Making - Medical Decision Making Was pt. sent in by a medical professional or institution (, PA, WHEEL FILLER, urgent care, hospital, or alf...) When possible be specific @ -No Did you speak to anyone other than the patient for history (EMS, parent, family, police, friend...)? What history was obtained from this source @ -No Did you review nursing and triage notes (agree or disagree)? Why? @ -I reviewed and agree with nursing and triage notes Were old charts reviewed (outside hosp., previous admission, EMS record, old EKG, old radiological studies, urgent care reports/EKG's, alf records)? Report findings @ -I reviewed the patient's chart from the Differential Diagnosis (chest pain, altered mental status, abdominal pain women, abdominal pain men, vaginal bleeding, weakness, fever, dyspnea, syncope, headache, dizziness, GI bleed, back pain, seizure, CVA, palpatations, mental health, musculoskeletal)? @ -Differential Abdominal Pain Men: Appendicitis, cholecystitis, diverticulosis, ischemic bowel, pancreatitis, hepatitis, UTI, gastroenteritis, AAA, incarcerated hernia, bowel obstruction, constipation, inflammatory bowel, hepatitis, peptic ulcer disease, splenic infarction, perforated viscus, testicular torsion, this is not meant to be an all-inclusive list EKG interpreted by me (3pts min.). @ -Not completed X-rays interpreted by me (1pt min.). @ -None done CT interpreted by me (1pt min.). @ -CT of the brain demonstrates no acute intracranial process. CT abdomen and pelvis demonstrates trace fluid. Appendix is normal. Under distended bladder U/S interpreted by me (1pt. min.). @ -None done What testing was considered but not performed or refused? (CT, X-rays, U/S, labs)? Why? @ - lumbar puncture - patient has no fever, meningeal signs. His headache has gone away. His neck tenderness is paraspinal What meds were considered but not given or refused? Why? @ -None Did you discuss the management of the patient with other professionals (professionals i.e. , PA, WHEEL FILLER, lab, RT, psych nurse, social science professor, caterpillar tractor operator, teacher, court officer, porter sample case)? Give summary @ -No Was smoking cessation discussed for >3mins.? @ -No Was critical care preformed (if so, how long)? @ -No Were there social determinants of health that impacted care today? How? (Homelessness, low income, unemployed, alcoholism, drug addiction, transportation, low edu. Level, literacy, decrease access to med. care, retirement, rehab)? @ -No Was there de-escalation of care discussed even if they declined (Discuss DNR or withdrawal of care, Hospice)? DNR status @ -No What co-morbidities impacted this encounter? (DM, HTN, Smoking, COPD, CAD, Cancer, CVA, ARF, Chemo, Hep., AIDS, mental health diagnosis, sleep apnea, morbid obesity)? @ -None Was patient admitted / discharged? Hospital course, mention meds given and route, prescriptions, significant lab abnormalities, going to OR and other pertinent info. @ -Upon arrival patient is placed into room 4. A thorough history and physical exam was performed. Patient's headache has gone away. He is no longer having fevers. Overall states that his symptoms are improved however he began having some bilateral neck aching. He has no midline neck pain. Patient infiltrate without difficulty. Laboratory studies are conducted. He is sent for CT of his head and cervical spine. CT of his abdomen and pelvis is performed due to his right lower quadrant pain. Patient was given Benadryl and Robaxin. He is reevaluated and states that the itching is better however his neck tension still is present. I did discuss lumbar puncture however shared decision making between the patient and I occurs and the patient refuses the testing at this time. I do feel that the diagnosis of meningitis is low in the setting that the patient's symptoms are rapidly improving. Patient is requesting testing for yellow fever, dengue, West Nile however I do inform him that I am unable to obtain these laboratory studies in the emergency department and he will require follow-up with his primary care doctor for this kind of testing. Patient understood this. He is instructed to take Benadryl every 6 hours for his rash. He is given a dose of Decadron in the emergency department. He is to return for any new or worsening symptoms. Patient was agreeable to this plan and was discharged in stable condition Undiagnosed new problem with uncertain prognosis? @ -Yes Drug Therapy requiring intensive monitoring for toxicity (Heparin, Nitro, Insulin, Cardizem)? @ -No Were any procedures done? @ -No Diagnosis/symptom? @ -Acute neck pain, acute right lower quadrant abdominal pain, viral rash Acute, or Chronic, or Acute on Chronic? @ -Acute Uncomplicated (without systemic symptoms) or Complicated (systemic symptoms)? @ -Complicated Side effects of treatment? @ -No Exacerbation, Progression, or Severe Exacerbation? @ -No Poses a threat to life or bodily function? How? (Chest pain, [place], [place], pneumonia, PE, COPD, DKA, ARF, appy, cholecystitis, CVA, Diverticulitis, Homicidal, Suicidal, threat to staff... and all critical care pts) @ -No - Lab Data Result diagrams: 10/02/22 21:56 10/02/22 21:56 Lab Results 10/02/22 10/02/22 10/02/22 Range/Units 21:56 21:56 21:56 WBC 3.4 L (3.8-10.6) k/uL RBC 4.24 L (4.30-5.90) m/uL Hgb 12.7 L (13.0-17.5) gm/dL Hct 36.3 L (39.0-53.0) % MCV 85.8 (80.0-100.0) fL MCH 30.0 (25.0-35.0) pg MCHC 34.9 (31.0-37.0) g/dL RDW 12.0 (11.5-15.5) % Plt Count 122 L (150-450) k/uL MPV 9.0 Neutrophils % Not Reportable Neutrophils % (Manual) 36 % Band Neuts % (Manual) 6 % Lymphocytes % Not Reportable Lymphocytes % (Manual) 45 % Monocytes % Not Reportable Monocytes % (Manual) 10 % Eosinophils % Not Reportable Eosinophils % (Manual) 3 % Basophils % Not Reportable Neutrophils # Not Reportable Neutrophils # (Manual) 1.40 (1.3-7.7) k/uL Lymphocytes # Not Reportable Lymphocytes # (Manual) 1.53 (1.0-4.8) k/uL Monocytes # Not Reportable Monocytes # (Manual) 0.34 (0-1.0) k/uL Eosinophils # Not Reportable Eosinophils # (Manual) 0.10 (0-0.7) k/uL Basophils # Not Reportable Nucleated RBCs 0 (0-0) /100 WBC Manual Slide Review Performed Reactive Lymphocytes ESR Cancelled Sodium 136 L (137-145) mmol/L Potassium 3.6 (3.5-5.1) mmol/L Chloride 103 (98-107) mmol/L Carbon Dioxide 26 (22-30) mmol/L Anion Gap 7 mmol/L BUN 7 L (9-20) mg/dL Creatinine 0.78 (0.66-1.25) mg/dL Est GFR (CKD-EPI)AfAm >90 (>60 ml/min/1.73 sqM) Est GFR (CKD-EPI)NonAf >90 (>60 ml/min/1.73 sqM) Glucose 117 H (74-99) mg/dL Plasma Lactic Acid Davis 0.8 (0.7-2.0) mmol/L Calcium 8.6 (8.4-10.2) mg/dL Total Bilirubin 0.6 (0.2-1.3) mg/dL AST 35 (17-59) U/L ALT 27 (4-49) U/L Alkaline Phosphatase 74 (38-126) U/L C-Reactive Protein 3.9 H (<1.0) mg/dL Total Protein 6.3 (6.3-8.2) g/dL Albumin 3.6 (3.5-5.0) g/dL 10/02/22 Range/Units 22:43 WBC (3.8-10.6) k/uL RBC (4.30-5.90) m/uL Hgb (13.0-17.5) gm/dL Hct (39.0-53.0) % MCV (80.0-100.0) fL MCH (25.0-35.0) pg MCHC (31.0-37.0) g/dL RDW (11.5-15.5) % Plt Count (150-450) k/uL MPV Neutrophils % Neutrophils % (Manual) % Band Neuts % (Manual) % Lymphocytes % Lymphocytes % (Manual) % Monocytes % Monocytes % (Manual) % Eosinophils % Eosinophils % (Manual) % Basophils % Neutrophils # Neutrophils # (Manual) (1.3-7.7) k/uL Lymphocytes # Lymphocytes # (Manual) (1.0-4.8) k/uL Monocytes # Monocytes # (Manual) (0-1.0) k/uL Eosinophils # Eosinophils # (Manual) (0-0.7) k/uL Basophils # Nucleated RBCs (0-0) /100 WBC Manual Slide Review Reactive Lymphocytes ESR 16 H Sodium (137-145) mmol/L Potassium (3.5-5.1) mmol/L Chloride (98-107) mmol/L Carbon Dioxide (22-30) mmol/L Anion Gap mmol/L BUN (9-20) mg/dL Creatinine (0.66-1.25) mg/dL Est GFR (CKD-EPI)AfAm (>60 ml/min/1.73 sqM) Est GFR (CKD-EPI)NonAf (>60 ml/min/1.73 sqM) Glucose (74-99) mg/dL Plasma Lactic Acid Davis (0.7-2.0) mmol/L Calcium (8.4-10.2) mg/dL Total Bilirubin (0.2-1.3) mg/dL AST (17-59) U/L ALT (4-49) U/L Alkaline Phosphatase (38-126) U/L C-Reactive Protein (<1.0) mg/dL Total Protein (6.3-8.2) g/dL Albumin (3.5-5.0) g/dL Disposition Clinical Impression: Rash, Viral syndrome Disposition: HOME SELF-CARE Condition: Stable Instructions (If sedation given, give patient instructions): Viral Syndrome (ED) Additional Instructions: Please take Benadryl 1-2 tablets every 6 hours for your rash. Follow-up with your doctor in pursue further testing. Return for any new or worsening symptoms Is patient prescribed a controlled substance at d/c from ED?: No Referrals: Samuel Barakat MD [Primary Care Provider] - 1-2 days Time of Disposition: 23:39
[2022-10-02 23:55] VITALS: BP 132/84; PULSE 78; RESP 15
== END 2022-10-02 23:58 | disposition home or self-care (01) ==
LOC: EC 21:28
DX: R21 Rash and other nonspecific skin eruption (principal); B34.9 Viral infection, unspecified; R18.8 Other ascites; J90 Pleural effusion, not elsewhere classified; F17.290 Nicotine dependence, other tobacco product, uncomplicated; F12.90 Cannabis use, unspecified, uncomplicated
CPT/HCPCS: 36415; 80053; 85652; 83605; 85025; 86140; 70450; 74177; 99284; 96374; 96375; J1200; J1100; Q9967